=== PATIENT | female | born 1995 | race Caucasian/White ===

== ENCOUNTER 2017-01-12 12:34 | Emergency (ER) | payer MEDICAID, OTHER ==
[2017-01-12 12:34] VITALS: BMI 49.2
[2017-01-12 12:37] VITALS: RESP 16; TEMP 97.9; O2SAT 99
[2017-01-12 12:57] VITALS: BP 124/61
--- NOTE | 2017-01-12 13:03 | ED PDOC ---
HPI: CCC, URI, Sore Throat Time Seen by Provider: 01/12/17 12:50 Chief Complaint (Nursing): ENT Problem Chief Complaint (Provider): Throat Pain History Per: Patient History/Exam Limitations: no limitations Have you had recent travel within the past 21 days to any of the following countries: [place], [place], [place] or [place]?: No Onset/Duration Of Symptoms: Days (x3) Current Symptoms Are (Timing): Still Present Associated Symptoms: Cough, Sputum (phlegm), Myalgias, Nasal Congestion. denies : Fever, Chills Ear Symptoms: Bilateral: Ear Fullness Severity: Moderate Additional Complaint(s): Mala Dimas is a 21 year old female, with no pertinent past medical history, who presents to the ED on 01/12/17 for the evaluation of a moderately sore throat that she has experienced x3 days. Pain, reportedly worse both at morning/night and with swallowing, has been accompanied by associated nasal congestion, b/l ear fullness, voice hoarseness, diffuse myalgias and a phlegmy cough. Denies fever, chills or ear discharge. Has taken no medications prior to arrival for symptom relief. PMD: none Past Medical History Reviewed: Historical Data, Nursing Documentation, Vital Signs Vital Signs: Last Vital Signs Temp 97.9 F 01/12/17 12:35 Pulse 92 H 01/12/17 12:35 Resp 16 01/12/17 12:35 BP 124/61 01/12/17 12:41 Pulse Ox 99 01/12/17 13:22 - Medical History PMH: No Chronic Diseases - Surgical History Surgical History: No Surg Hx - Family History Family History: States: Unknown Family Hx - Social History Current smoker - smoking cessation education provided: Yes (occasional) Alcohol: None Drugs: Denies - Immunization History Hx Tetanus Toxoid Vaccination: Yes - Home Medications Home Medications: Ambulatory Orders Medication Instructions Recorded Terconazole [Terazol 3] 80 mg VG HS #3 supp 05/29/16 Guaifenesin [Mucinex] 600 mg PO BID #14 tab.er.12h 01/12/17 - Allergies Allergies/Adverse Reactions: Allergies Allergy/AdvReac Type Severity Reaction Status Date / Time No Known Allergies Allergy Verified 01/12/17 13:17 Review of Systems Constitutional: Negative for: Fever, Chills ENT: Positive for: Ear Pain (fullness), Nose Congestion, Throat Pain. Negative for: Ear Discharge Cardiovascular: Negative for: Chest Pain Respiratory: Positive for: Cough, Sputum (phlegm). Negative for: Shortness of Breath Musculoskeletal: Positive for: Other (diffuse myalgias) Physical Exam - Reviewed Nursing Documentation Reviewed: Yes Vital Signs Reviewed: Yes - Physical Exam Appears: Positive for: Non-toxic, No Acute Distress Head Exam: Positive for: ATRAUMATIC, NORMOCEPHALIC Skin: Positive for: Normal Color, Warm, Dry Eye Exam: Positive for: Normal appearance, PERRL ENT: Positive for: Pharynx Is (clear; no uvular swelling), TM Is/Are (bulging b/ l TM; no erythema/exudate), Nasal Congestion. Negative for: Pharyngeal Erythema , Tonsillar Exudate, Tonsillar Swelling Cardiovascular/Chest: Positive for: Regular Rate, Rhythm. Negative for: Murmur Respiratory: Positive for: Normal Breath Sounds. Negative for: Respiratory Distress Neurologic/Psych: Positive for: Alert, Oriented - ECG O2 Sat by Pulse Oximetry: 99 (RA) Pulse Ox Interpretation: Normal Medical Decision Making Medical Decision Makin:50 Initial Impression: viral syndrome 13:02 Patient is medically stable and requires no emergent treatment in the ED at this time. Patient will be discharged home with Rx for Mucinex. Also advised rest, increased fluid intake and to take NSAIDs as needed for relief of pain. Counseling was provided and all questions were answered regarding diagnosis and there is agreement to discharge plan. Return if symptoms persist or worsen. Clinical Impression: viral syndrome Scribe Attestation: Documented by Nicol Augustin, acting as a scribe for Courtney Goodwin PA-C. Provider Scribe Attestation: All medical record entries made by the Scribe were at my direction and personally dictated by me. I have reviewed the chart and agree that the record accurately reflects my personal performance of the history, physical exam, medical decision making, and the department course for this patient. I have also personally directed, reviewed, and agree with the discharge instructions and disposition. Disposition - Clinical Impression Clinical Impression: Viral syndrome - Patient ED Disposition Is Patient to be Admitted: No Counseled Patient/Family Regarding: Diagnosis, Rx Given - Disposition Disposition: Routine/Home Disposition Time: 13:02 Condition: STABLE Prescriptions: Guaifenesin [Mucinex] 600 mg PO BID #14 tab.er.12h Instructions: Viral Syndrome (ED)
[2017-01-12 13:53] VITALS: PULSE 76
== END 2017-01-12 13:52 | disposition home or self-care (01) ==
LOC: H.ER 12:34
DX: B34.9 Viral infection, unspecified (principal); R07.0 Pain in throat

== ENCOUNTER 2017-03-28 15:04 | Inpatient (IN) | payer OTHER ==
[2017-03-28 15:04] VITALS: BMI 49.2
--- NOTE | 2017-03-28 15:40 | ED PDOC ---
Lower Extremity Pain/Injury Time Seen by Provider: 03/28/17 15:19 Chief Complaint (Nursing): Lower Extremity Problem/Injury Chief Complaint (Provider): Lower Extremity Problem History Per: Patient History/Exam Limitations: no limitations Onset/Duration Of Symptoms: Days Current Symptoms Are (Timing): Still Present Severity: Moderate Additional History Per: Prior Records Additional Complaint(s): Mala Dimas is a 21 year old female, with no pertinent past medical history, who returns to the emergency department with complaints of increasing pain s/p right trimalleolar reduction. Patient was recently seen in this emergency room on 03/22/2017 and diagnosed with a trimalleolar fracture. Patient was prescribed Naproxen, which she last took today at 13:00, providing no relief. Upon previous discharge from the ER, patient was advised to followup with a podiatry clinic; however, she never went. Of note, patient has medical record charts under #[id number]. PMD: none specified Past Medical History Reviewed: Historical Data, Nursing Documentation, Vital Signs Vital Signs: Last Vital Signs Temp 98.6 F 03/28/17 15:06 Pulse 96 H 03/28/17 15:06 Resp 18 03/28/17 15:06 BP 137/73 03/28/17 15:06 Pulse Ox 100 03/28/17 15:06 - Medical History PMH: Fractures - Surgical History Surgical History: No Surg Hx - Family History Family History: States: No Known Family Hx - Social History Current smoker - smoking cessation education provided: No Ex-Smoker (has not smoked in the last 12 months): No Alcohol: None Drugs: Denies - Immunization History Hx Tetanus Toxoid Vaccination: Yes - Home Medications Home Medications: Ambulatory Orders Medication Instructions Recorded Naproxen [Naprosyn] 500 mg PO BID PRN 03/28/17 - Allergies Allergies/Adverse Reactions: Allergies Allergy/AdvReac Type Severity Reaction Status Date / Time No Known Allergies Allergy Verified 01/12/17 13:17 Review of Systems ROS Statement: Except As Marked, All Systems Reviewed And Found Negative Musculoskeletal: Positive for: Foot Pain Physical Exam - Reviewed Nursing Documentation Reviewed: Yes Vital Signs Reviewed: Yes - Physical Exam Appears: Positive for: Non-toxic, No Acute Distress Head Exam: Positive for: ATRAUMATIC, NORMOCEPHALIC Skin: Positive for: Normal Color, Warm, DRY Cardiovascular/Chest: Positive for: Regular Rate, Rhythm. Negative for: Murmur Respiratory: Positive for: Normal Breath Sounds. Negative for: Respiratory Distress Gastrointestinal/Abdominal: Positive for: Normal Exam, Soft. Negative for: Tenderness Extremity: Positive for: Capillary Refill (less than 2 seconds), Other ( sensation of digits intact). Negative for: Normal ROM (right lower extremity in cast) Neurologic/Psych: Positive for: Alert, Oriented - Laboratory Results Result Diagrams: 03/28/17 16:31 - ECG O2 Sat by Pulse Oximetry: 100 (RA) Pulse Ox Interpretation: Normal - Physician Consult Information Physician Contacted: Jones Saldana Outcome Of Conversation: Recommends Lovenox 40 mg SC now. Medical Decision Making Medical Decision Makin:19 Initial Impression: Post reduction pain Initial Plan: * Podiatry Consult Podiatry recommends admission for OR on Friday. Scribe Attestation: Documented by James Gutierrez, acting as a scribe for Katerina Garcia MD. Provider Scribe Attestation: All medical record entries made by the Scribe were at my direction and personally dictated by me. I have reviewed the chart and agree that the record accurately reflects my personal performance of the history, physical exam, medical decision making, and the department course for this patient. I have also personally directed, reviewed, and agree with the discharge instructions and disposition. Disposition - Clinical Impression Clinical Impression: Closed fracture of distal end of left fibula and tibia - Patient ED Disposition Is Patient to be Admitted: Yes - Disposition Disposition Time: 15:56 Condition: STABLE - Pt Status Changed To: Hospital Disposition Of: Inpatient - Admit Certification Admit to Inpatient:: After my assessment, the patient will require hospitalization for at least two midnights. This is because of the severity of symptoms shown, intensity of services needed, and/or the medical risk in this patient being treated as an outpatient. - POA Present On Arrival: Falls Or Trauma
[2017-03-28] MEDS ORDERED: Enoxaparin 40 mg Syringe SC STA (16:30)
[2017-03-28 16:42] LABS: BASO # 0.1 K/uL (0.0-0.2); BASO % 0.8 % (0.0-2.0); EOS # 0.1 K/uL (0.0-0.7); EOS % 0.8 % (0.0-4.0); HEMATOCRIT 36.6 % (34.0-47.0); LYMPH # 1.2 K/uL (1.0-4.3); LYMPH % 13.3 % (20.0-40.0); MEAN CELL VOLUME 82.9 fl (81.0-99.0); MEAN CORPUSCULAR HEMOGLOBIN 26.4 pg (27.0-31.0); MEAN CORPUSCULAR HGB CONC 31.8 g/dL (33.0-37.0); MEAN PLATELET VOLUME 8.7 fl (7.2-11.7); MONO # 0.4 K/uL (0.0-0.8); NEUT % 80.1 % (50.0-75.0); RED CELL DISTRIBUTION WIDTH 16.6 % (11.5-14.5); WHITE BLOOD COUNT 8.7 K/uL (4.8-10.8)
[2017-03-28 16:52] LABS: ALB/GLOB RATIO 1.1 (1.0-2.1); ALKALINE PHOSPHATASE 55 U/L (38-126); ALT/SGPT 19 U/L (9-52); AST/SGOT 51 U/L (14-36); BILIRUBIN,TOTAL 0.9 mg/dl (0.2-1.3); BLOOD UREA NITROGEN 17 mg/dl (7-17); CALCIUM 9.1 mg/dL (8.4-10.2); CARBON DIOXIDE 24 mmol/L (22-30); CHLORIDE 107 mmol/L (98-107); GFR AFRICAN-AMERICAN > 60; GLUCOSE,RANDOM 76 mg/dL (65-105); SODIUM 141 mmol/l (132-148)
--- NOTE | 2017-03-28 16:57 | CP.PCM.CON ---
History of Present Illness - History of Present Illness History of Present Illness: 21 y/o female seen in the ED with no known pmhx, returns to the ED with pain after sustaining an ankle fx to her right ankle on 03/22/17 s/p ankle fracture reduction. Patient states that she is unable to use crutches to get up and down the stairs in her apt so she has been unable to leave since friday. Patient states that she had missed hr apt on friday in podiatry clinic because she was unable to leave her apt. Patient states that her pain is a 10/ 10 and the naproxen has not really helped much. Patient denies any new onset trauma to the ankle. Patient denies any other complaints at this time. She denies n/f/c/v/d/sob. Review of Systems - Constitutional Constitutional: As Per HPI Past Patient History - Past Social History Alcohol: None Drugs: Denies - MUSCULOSKELETAL/RHEUMATOLOGICAL Hx Fractures: Yes - PSYCHIATRIC Hx Substance Use: No - SURGICAL HISTORY Hx Surgeries: No - ANESTHESIA Hx Anesthesia: No Hx Anesthesia Reactions: No Meds Allergies/Adverse Reactions: Allergies Allergy/AdvReac Type Severity Reaction Status Date / Time No Known Allergies Allergy Verified 01/12/17 13:17 Physical Exam - Constitutional Appears: Well, Non-toxic, No Acute Distress - Extremities Exam Additional comments: right lower extremity focused: Vasc: DP/PT 2/4 , TG wnl, CFT < 3 sec to all digits neuro: grossly intact derm: perimalleolar and foot edema, erythema, echymoses to the medial ankle, no open lesions, no acute clinical signs of infection ortho: severe pain on palpation to right lower extremity, no pain on palpation to calf or calf tenderness - Neurological Exam Neurological exam: Alert, Oriented x3 - Psychiatric Exam Psychiatric exam: Normal Affect, Normal Mood Results - Vital Signs Recent Vital Signs: Last Vital Signs Temp 98.6 F 03/28/17 15:06 Pulse 96 H 03/28/17 15:06 Resp 18 03/28/17 15:06 BP 137/73 03/28/17 15:06 Pulse Ox 100 03/28/17 16:28 - Labs Result Diagrams: 03/28/17 16:31 Labs: Laboratory Results - last 24 hr 03/28/17 16:31 WBC 8.7 RBC 4.42 Hgb 11.6 L Hct 36.6 MCV 82.9 D MCH 26.4 L MCHC 31.8 L RDW 16.6 H Plt Count 397 MPV 8.7 Neut % (Auto) 80.1 H Lymph % (Auto) 13.3 L Howard % (Auto) 5.0 Eos % (Auto) 0.8 Baso % (Auto) 0.8 Neut # 7.0 Lymph # 1.2 Howard # 0.4 Eos # 0.1 Baso # 0.1 Assessment & Plan - Assessment and Plan (Free Text) Assessment: 21 y.o female 1 week s/p trimalleolar right ankle fracture with closed reduction Plan: patient evaluated and chart reviewed discussed in detail with attending Dr. Santana labs and vitals reviewed applied posterior splint using katerininetteprema TIARRA to RLE f/u new ankle X rays f/u US to R/O DVT patient to be admitted for pain control and preoperative management for surgery patient to go to surgery for R ankle ORIF early next week f/u medical optimization for sx patient to remain nonWB with crutches/wheelchair to RLE podiatry will continue to monitor while patient remains in house
[2017-03-28 17:00] LABS: POTASSIUM 5.1 MMOL/L (3.6-5.0)
[2017-03-28 17:02] LABS: PARTIAL THROMBOPLASTIN TIME 32.9 Seconds (25.6-37.1)
--- NOTE | 2017-03-28 17:23 | US ---
PROCEDURE: Right lower extremity venous duplex Doppler. HISTORY: Increasing pain, s/p fracture COMPARISON: None available. TECHNIQUE: Common femoral, superficial femoral, popliteal and posterior tibial veins were evaluated. Flow was assessed with color Doppler, compressibility, assessment of phasic flow and augmentation response. FINDINGS: COMMON FEMORAL VEIN: Unremarkable. SUPERFICIAL FEMORAL VEIN: Unremarkable. POPLITEAL VEIN: Unremarkable. POSTERIOR TIBIAL VEIN: Was not visualized and obscured by right leg cast. OTHER FINDINGS: None. IMPRESSION: The right PTV was not visualized. Otherwise no evidence of deep venous thrombosis in the right lower extremity.
--- NOTE | 2017-03-28 17:31 | RAD ---
PROCEDURE: Radiographs of the right tibia and fibula. HISTORY: H/o tib-fib fx COMPARISON: March 28, 2017. . TECHNIQUE: Frontal and lateral views obtained. FINDINGS: BONES: Fractures of the distal tibia and fibula. No proximal fractures are identified. JOINT SPACES: Unremarkable. OTHER FINDINGS: None. IMPRESSION: This stable tibial and fibular fractures better seen on ankle radiographs. Detail obscured by overlying fiberglass cast.
--- NOTE | 2017-03-28 17:34 | RAD ---
PROCEDURE: Right Ankle Radiographs. M name rim came resume M for HISTORY: H/o tib-fib fxn COMPARISON: None FINDINGS: BONES: Fractures of the right tibia and fibula. Obliques fracture involving the distal fibula. Avulsed fracture of the medial malleolus at the level of the ankle mortise. . JOINTS: Normal. No osteoarthritis. Ankle mortise maintained. Talar dome intact SOFT TISSUES: Soft tissue swelling attests to the acuity of the fracture. OTHER FINDINGS: None. IMPRESSION: Fractures of the distal tibia and fibula. Detail obscured by overlying fiberglass cast.
[2017-03-28 17:59] LABS: URINE APPEARANCE SL CLOUDY (CLEAR); URINE BILIRUBIN NEGATIVE (NEGATIVE); URINE BLOOD NEGATIVE (NEGATIVE); URINE COLOR YELLOW (YELLOW); URINE GLUCOSE (UA) NEG (Normal); URINE KETONE NEGATIVE (NEGATIVE); URINE LEUKOCYTE ESTERASE LARGE Leu/uL (Negative); URINE PROTEIN 30 mg/dL (NEGATIVE); URINE UROBILINOGEN 0.2-1.0 mg/dL (0.2-1.0)
[2017-03-28 18:07] LABS: URINE WBC 15 - 20 /hpf (0-6)
[2017-03-28 18:08] LABS: URINE BACTERIA RARE (<OCC)
--- NOTE | 2017-03-29 08:58 | HP ---
HISTORY OF PRESENT ILLNESS: This is a 21-year-old female with no significant past medical h istory, presented to Emergency Room after a fracture of the bones of the right foot. The patient was initially treated as an outpatient, but patient continued not to improve and podiatry decision was t o have surgery with internal fixation. The patient denied any chest pain, no shortness of breath, an d she denied not have any previous surgeries. REVIEW OF SYSTEMS: Other review of systems is negative. ALLERGIES: No known allergy. HOME MEDICATIONS: None. FAMILY HISTORY: Noncontributory. PHYSICAL EXAMINATION: GENERAL: Comfortable, not in any cardiopulmonary distress. VITAL SIGNS: Blood pressure 95/63, temperature 97.9, respiratory rate 20 and pulse is 81. HEENT: Pupils equal, reactive to light. Normal-appearing mucosa of the conjunctivae, oropharyngeal and nasal membrane mucosa. NECK: Supple, no JVD, no carotid bruit, no lymph node, no thyromegaly. CHEST AND LUNGS: Bilateral symmetrical expansion, good air exchange, no rales, no rhonchi. CARDIOVASCULAR: PMI not localized. S1, S2. No additional sounds. ABDOMEN: Normoactive bowel sounds, no tenderness, no organomegaly, no masses. EXTREMITIES: No cyanosis, no clubbing, no edema. CENTRAL NERVOUS SYSTEM: Alert, awake, oriented x 3. No neurological deficits could be appreciated. ASSESSMENT: Fall with right foot fracture. PLAN: I will give patient DVT prophylaxis. Follow podiatry recommendations. [facility] Ovidio Saldana MD cc: [phone] TT: 03/29/2017 08:57:13 jn
--- NOTE | 2017-03-29 12:22 | CP.PCM.PN ---
Subjective - Date & Time of Evaluation Date of Evaluation: 03/29/17 Time of Evaluation: 12:20 - Subjective Subjective: Patient seen and evaluated at bedside, NAD. Patient has posterior splint clean dry and intact to the right lower extremity, which is elevated with pillows. Patient reports that her pain is well controlled with medication. She denies n/v /f/c/sob at this time. Objective - Vital Signs/Intake and Output Vital Signs (last 24 hours): Temp Pulse Resp BP Pulse Ox 97.3 F L 84 22 109/44 L 100 03/29/17 08:04 03/29/17 08:04 03/29/17 08:04 03/29/17 08:04 03/29/17 08:04 - Medications Medications: Current Medications Enoxaparin Sodium (Lovenox) 40 mg SC DAILY CHARANJIT PRN Reason: Protocol Morphine Sulfate (Morphine) 1 mg IVP Q4 PRN PRN Reason: Pain, moderate (4-7) Last Admin: 03/29/17 11:52 Dose: 1 mg - Labs Labs: 03/28/17 16:31 03/28/17 16:31 PT 13.4 Seconds (9.8-13.1) H 03/28/17 16:31 INR 1.2 (0.9-1.2) 03/28/17 16:31 APTT 32.9 Seconds (25.6-37.1) 03/28/17 16:31 - Constitutional Appears: Well, Non-toxic, No Acute Distress - Neurological Exam Neurological Exam: Oriented x3 - Psychiatric Exam Psychiatric exam: Normal Affect, Normal Mood - Additional Findings Additional findings: Neurovascular status intact distal and proximal to the posterior splint. Splint is c/d/i. Assessment and Plan - Assessment and Plan (Free Text) Assessment: 21 year old female with right ankle trimalleolar fracture. Plan: Patient seen and evaluated, d/w attending Dr. Santana. Patients posterior splint left intact. Patient to continue ice and elevation of the RLE. Patient to surgery on Friday at 1:30 pm for right ankle ORIF, medical clearance appreciated Lovenox to be held after tomorrow. Order placed for PO pain medication Patient to be NPO after midnight tomorrow
[2017-03-29] MEDS: Oxycodone/Acetaminophen 5/325 mg Tab PO PRN ×2 (13:56→19:38)
[2017-03-29] MEDS: Enoxaparin 40 mg Syringe SC SCH (17:17)
--- NOTE | 2017-03-29 21:35 | PN ---
DATE: 03/29/2017 SUBJECTIVE: The patient is seen today 03/29/2017. Her pain is controlled on the right foot. OBJECTIVE: VITAL SIGNS: Blood pressure is 109/44, temperature 97.3, respiratory rate 20, pulse 84. HEENT: Pupils equal, reactive to light. Normal-appearing mucosa of the conjunctivae, oropharyngeal and nasal membrane mucosa. NECK: Supple, no JVD, no carotid bruit, no lymph node, no . CHEST AND LUNGS: Bilateral symmetrical expansion, good air exchange, no rales, no rhonchi. CARDIOVASCULAR: PMI not localized. S1, S2. No additional sounds. ABDOMEN: Normoactive bowel sounds, no tenderness, no organomegaly, no masses. EXTREMITIES: No cyanosis, no clubbing, no edema. CENTRAL NERVOUS SYSTEM: Alert, awake, oriented x 3. No neurological deficits could be appreciated. ASSESSMENT: Right ankle fracture for open reduction and internal fixation. PLAN: We will continue deep thrombosis prophylaxis until 24 hours prior to surgery. medicatio n and ambulation as per podiatry. [facility] cc: [phone] TT: 03/29/2017 21:34:17 Confirmation # [id number] Dictation # [id number] dn
[2017-03-30] MEDS: Enoxaparin 40 mg Syringe SC SCH (10:06)
--- NOTE | 2017-03-30 12:51 | CP.PCM.PN ---
Subjective - Date & Time of Evaluation Date of Evaluation: 03/30/17 Time of Evaluation: 12:49 - Subjective Subjective: Patient seen and evaluated at bedside, NAD. Patient has posterior splint clean, dry and intact with leg elevated. She states that her pain is controlled with medication, however she reports feeling nauseous from percocet. Objective - Vital Signs/Intake and Output Vital Signs (last 24 hours): Temp Pulse Resp BP Pulse Ox 98.8 F 83 20 108/52 L 100 03/30/17 09:00 03/30/17 09:00 03/30/17 09:00 03/30/17 09:00 03/30/17 09:00 - Medications Medications: Current Medications Enoxaparin Sodium (Lovenox) 40 mg SC DAILY CHARANJIT PRN Reason: Protocol Last Admin: 03/30/17 10:06 Dose: Not Given Morphine Sulfate (Morphine) 1 mg IVP Q4 PRN PRN Reason: Pain, moderate (4-7) Last Admin: 03/30/17 11:37 Dose: 1 mg Oxycodone/Acetaminophen (Percocet 5/325 Mg Tab) 2 tab PO Q4 PRN PRN Reason: Pain, moderate (4-7) Stop: 04/01/17 12:25 Last Admin: 03/29/17 19:38 Dose: 2 tab Tramadol HCl (Ultram) 100 mg PO Q4 PRN PRN Reason: Pain, severe (8-10) - Labs Labs: 03/28/17 16:31 03/28/17 16:31 PT 13.4 Seconds (9.8-13.1) H 03/28/17 16:31 INR 1.2 (0.9-1.2) 03/28/17 16:31 APTT 32.9 Seconds (25.6-37.1) 03/28/17 16:31 - Constitutional Appears: Well, Non-toxic, No Acute Distress - Neurological Exam Neurological Exam: Oriented x3 - Psychiatric Exam Psychiatric exam: Normal Affect, Normal Mood - Additional Findings Additional findings: Neurovascular status intact distal and proximal to the posterior splint. Splint is c/d/i. Assessment and Plan - Assessment and Plan (Free Text) Assessment: 21 year old female with trimalleolar ankle fracture of the right ankle Plan: Patient seen and evaluated, d/w attending Dr. Santana. Patient NPO after midnight tonight for ankle ORIF tomorrow at 1:30, pending OR schedule Lovenox held today Patient to continue elevation of the RLE PO tramadol ordered to replace percocet Podiatry will continue to follow
--- NOTE | 2017-03-31 01:15 | PN ---
DATE: 03/30/2017 SUBJECTIVE: The patient is seen today, 03/30/2017. She is not in any distress. The patient is sche duled for surgery tomorrow. PHYSICAL EXAMINATION: VITAL SIGNS: Blood pressure is 105/59, temperature . Respiratory rate 20, pulse 86. HEENT: Pupils equal, reactive to light. Normal appearing mucosa of the conjunctivae and oropharynge al mucosa. NECK: Supple, no JVD, no carotid bruit, no lymph node lymphadenopathy. CHEST AND LUNGS: Bilateral symmetrical expansion, good air exchange, no rales, no rhonchi. CARDIOVASCULAR: PMI not localized. S1, S2. No additional sounds. ABDOMEN: Normoactive bowel sounds, no tenderness, no organomegaly, no masses. EXTREMITIES: No cyanosis, no clubbing, no edema. CENTRAL NERVOUS SYSTEM: Alert, awake, oriented x 3. No neurological deficits could be appreciated. ASSESSMENT: Fracture, right ankle, that needs open reduction and internal fixation and not respondin g to conservative treatment. PLAN: Will hold Lovenox today and the patient has accepted the risks surgery given that she hodges s no past medical history and she is not on any medications and no symptoms or signs of cardiopulmona ry decompensation or recent . Jones Saldana MD cc: [phone] TT: 03/31/2017 01:14:52 Confirmation # [id number] Dictation # [id number] mn
--- NOTE | 2017-03-31 06:31 | CP.PCM.PN ---
Subjective - Date & Time of Evaluation Date of Evaluation: 03/31/17 Time of Evaluation: 06:28 - Subjective Subjective: 25 y/o female seen at bedside this morning for R ankle fracture going to OR today for right ankle ORIF by Dr. Santana. Patient appears in NAD and AAOx3. Patient's right lower extremity splint intact and elevated on multiple pillows. Patient denies any acute events overnight. Patient states that she has not eaten or drank anything since last night. Patient states that her pain is controlled but is nervous about the pain after the surgery. She denies any n/f/v /d/c/sob. Objective - Vital Signs/Intake and Output Vital Signs (last 24 hours): Temp Pulse Resp BP Pulse Ox 97.9 F 90 20 118/59 L 99 03/31/17 00:59 03/31/17 00:59 03/31/17 00:59 03/30/17 21:00 03/31/17 00:59 Intake and Output: 03/30/17 03/31/17 18:59 06:59 Intake Total 700 Output Total 50 Balance 650 - Medications Medications: Current Medications Enoxaparin Sodium (Lovenox) 40 mg SC DAILY [facility] PRN Reason: Protocol Last Admin: 03/30/17 10:06 Dose: Not Given Morphine Sulfate (Morphine) 1 mg IVP Q4 PRN PRN Reason: Pain, moderate (4-7) Last Admin: 03/30/17 11:37 Dose: 1 mg Oxycodone/Acetaminophen (Percocet 5/325 Mg Tab) 2 tab PO Q4 PRN PRN Reason: Pain, moderate (4-7) Stop: 04/01/17 12:25 Last Admin: 03/29/17 19:38 Dose: 2 tab Tramadol HCl (Ultram) 100 mg PO Q4 PRN PRN Reason: Pain, severe (8-10) Last Admin: 03/31/17 00:55 Dose: 100 mg - Labs Labs: 03/28/17 16:31 03/28/17 16:31 PT 13.4 Seconds (9.8-13.1) H 03/28/17 16:31 INR 1.2 (0.9-1.2) 03/28/17 16:31 APTT 32.9 Seconds (25.6-37.1) 03/28/17 16:31 - Constitutional Appears: Well, Non-toxic, No Acute Distress - Extremities Exam Additional comments: right lower extremity: splint remains c/d/i able to wiggle toes cft < 3 sec to all digits no calf pain or tenderness - Neurological Exam Neurological Exam: Alert, Awake, Oriented x3 - Psychiatric Exam Psychiatric exam: Normal Affect, Normal Mood Assessment and Plan - Assessment and Plan (Free Text) Assessment: 25 y/o female seen at bedside going to OR today for right ankle ORIF Plan: Pt was seen and examined at bedside Pt NPO status was confirmed All Pre-op testing and clearance was in the chart Pt has exhausted all conservative treatment at this time and is opting for surgical intervention Pt was explained procedure and post-operative course All pt's questions were answered to satisfaction No guarantees were made Pt understands all risks, benefits and complications of procedure podiatry will continue to monitor while patient remains in house
[2017-03-31] MEDS ORDERED: Propofol 10 mg/ml Inj (20 ML) ONE ×2 (12:40→14:16)
[2017-03-31] MEDS ORDERED: Midazolam 2 MG/2 ML VIAL ONE (12:40)
[2017-03-31] MEDS ORDERED: ePHEDrine 50 mg/ml Inj ONE (12:40)
[2017-03-31] MEDS ORDERED: Succinylcholine 200 mg/10 ml Inj IV ONE (12:41)
[2017-03-31] MEDS ORDERED: Rocuronium 10 mg/ml (5 ml) ONE ×2 (12:41→15:13)
[2017-03-31] MEDS ORDERED: Ropivacaine 0.5% 30ML IV ONE (12:44)
[2017-03-31] MEDS ORDERED: MethylPREDNISolone Depo 40 mg/ml Inj ONE (12:56)
[2017-03-31] MEDS ORDERED: Bupivacaine 0.5% Inj(30mL) ONE (12:56)
[2017-03-31] MEDS ORDERED: Lidocaine 1% Inj (20ml) ONE (12:56)
[2017-03-31 14:05] LABS: BLOOD UREA NITROGEN 16 mg/dl (7-17); CALCIUM 9.7 mg/dL (8.4-10.2); CARBON DIOXIDE 20 mmol/L (22-30); CHLORIDE 105 mmol/L (98-107); GFR AFRICAN-AMERICAN > 60; GLUCOSE,RANDOM 87 mg/dL (65-105); POTASSIUM 4.1 MMOL/L (3.6-5.0); SODIUM 139 mmol/l (132-148)
[2017-03-31] MEDS ORDERED: Lactated Ringer's 1,000 ML IV ONE (14:20)
[2017-03-31] MEDS ORDERED: Dexamethasone 4 mg/1 ml ONE (14:45)
[2017-03-31] MEDS ORDERED: Neostigmine Methylsulfate 3mg/3ml Syringe IV ONE (16:55)
[2017-03-31] MEDS ORDERED: Lidocaine 2% MPF (5 ml) Inj ONE (17:00)
[2017-03-31] MEDS ORDERED: Bupivacaine HCl 0.5% PF (30 ml) Inj ONE (17:00)
[2017-03-31] MEDS ORDERED: Lidocaine 2% PF (10 ml) Amp ONE (17:01)
[2017-03-31] MEDS ORDERED: Oxycodone/Acetaminophen 5/325 mg Tab PO PRN (17:32)
--- NOTE | 2017-03-31 17:32 | PCM.ANESB2 ---
Popliteal Nerve Block - Popliteal Nerve Block Date of Procedure: 03/31/17 Anesthesiologist: Wagner Pre-Procedure Diagnosis: right ankle fracture Post-Procedure Diagnosis: same Procedure Performed: Popliteal Nerve Block Right - Procedure Popliteal Nerve Block: This procedure was explained to the patient that it is for post-operative pain management. Consent was obtained after a thorough discussion with the patient regarding the benefits and possible complications of local anesthetic block of the sciatic nerve at the popliteal level. The patient was brought to the operating room and standard monitors are applied. Time-out was held with the circulating nurse to confirm the correct surgery and the appropriate block. After applying oxygen by nasal cannula and administering IV Sedation, patient's operative leg was gently raised and supported and the groove in between the biceps femoris and vastus lateralis muscles was carefully palpated. The skin approximately 8cm above the popliteal crease was then marked. The ultrasound transducer was then applied to the posterior thigh approximately 8cm above the popliteal crease in the transverse plane and the sciatic nerve before its division was visualized lateral to the popliteal artery and in between the bicep femoris and semimembranosus/semitendinosus muscles. After identification, the lateral portion of the thigh was prepped with Betadine solution three times and Lidocaine 1% was injected subcutaneously for topical anesthesia. At this point, a # 21 gauge Stimuplex insulated 4 inch needle was inserted into pre-marked area and advanced in a perpendicular direction. The needle was inserted above the ultrasound transducer in-plane towards the sciatic nerve in a [id number] direction. Needle advancement was performed carefully under direct ultrasound visualization. Nerve stimulator was used and dorsiflexion of the right foot was elicited at a current of _o.4____ MA. After repeated negative aspiration, _10____cc of _2____ % __lidocaine was injected and this was flowed with ___20___ cc of __0.5____% __ropivicaine ___. Under ultrasound guidance the local anesthetics were observed tenting the epidural sheath and surrounding the roots of the sciatic nerve. The needle was removed intact and sterile dressing was applied. The patient tolerated the popliteal nerve block well with stable vital signs and was subsequently prepared for the surgery.
--- NOTE | 2017-03-31 17:32 | PCM.SURG1 ---
Surgeon's Initial Post Op Note - Surgeon's Notes Surgeon: Dr. Santana Ballet Professor: Dr. Womack, Dr. Bernabe, Dr. Yadav Type of Anesthesia: General Endo Anesthesia Administered By: Dr. Jamison Pre-Operative Diagnosis: right ankle fracture Operative Findings: see dictation Post-Operative Diagnosis: same as preop Operation Performed: right ankle ORIF Specimen/Specimens Removed: none Estimated Blood Loss: EBL {In ML}: 30 Blood Products Given: N/A Drains Used: No Drains Post-Op Condition: Good Date of Surgery/Procedure: 03/31/17 Time of Surgery/Procedure: 14:30
[2017-03-31] MEDS ORDERED: DiphenhydrAMINE 50 mg/ml Inj IVP PRN (17:47)
[2017-03-31] MEDS ORDERED: Lactated Ringer's 1,000 ML IV SCH (17:47)
[2017-03-31] MEDS ORDERED: HYDROmorphone 0.5 mg/0.5 ml ISec IVP PRN (17:47)
--- NOTE | 2017-03-31 17:50 | RAD ---
PROCEDURE: Intraoperative Fluoroscopy. HISTORY: Right ankle FINDINGS: Fluoroscopic assistance was provided for ORIF right ankle. Approximately 133.2 seconds fluoroscopy time utilized during this procedure. Radiation dose = 6.12 mGy Please refer to the operative report for additional details.
[2017-04-01] MEDS: HYDROmorphone 0.5 mg/0.5 ml ISec IVP PRN ×3 (00:03→15:01)
--- NOTE | 2017-04-01 10:51 | CP.PCM.PN ---
Subjective - Date & Time of Evaluation Date of Evaluation: 04/01/17 Time of Evaluation: 10:51 - Subjective Subjective: 25 y/o female seen bedside 1 day s/p right ankle ORIF. Pt appears in NAD and is AAOx3. Pt denies of any overnight events. Pt denies of any F/N/V/C/SOB. Pt states that her pain is well controlled but feels nauseous from percocet. Pt states that she has been icing behind the knees and has been elevating her leg on pillows. Pt complains of numbness on her toes and burning on her ankle. Objective - Vital Signs/Intake and Output Vital Signs (last 24 hours): Temp Pulse Resp BP Pulse Ox 99 F 81 18 123/63 96 04/01/17 08:19 04/01/17 08:19 04/01/17 08:19 04/01/17 08:19 04/01/17 08:19 Intake and Output: 04/01/17 04/01/17 06:59 18:59 Intake Total 1440 Output Total 450 Balance 990 - Medications Medications: Current Medications Acetaminophen (Tylenol 325mg Tab) 650 mg PO Q4 PRN PRN Reason: Pain, Mild (1-3) Enoxaparin Sodium (Lovenox) 40 mg SC DAILY [facility] PRN Reason: Protocol Last Admin: 03/30/17 10:06 Dose: Not Given Hydromorphone HCl (Dilaudid) 1 mg IVP Q3 PRN PRN Reason: Pain, severe (8-10) Last Admin: 04/01/17 06:18 Dose: 1 mg Lactated Ringer's (Lactated Ringer's) 1,000 mls @ 100 mls/hr IV .Q10H [facility] Last Admin: 04/01/17 03:49 Dose: 100 mls/hr Oxycodone/Acetaminophen (Percocet 5/325 Mg Tab) 1 tab PO Q4 PRN PRN Reason: Pain, moderate (4-7) Stop: 04/03/17 17:33 Tramadol HCl (Ultram) 100 mg PO Q4 PRN PRN Reason: Pain, severe (8-10) Last Admin: 04/01/17 10:02 Dose: 100 mg - Labs Labs: 03/28/17 16:31 03/31/17 13:30 PT 13.4 Seconds (9.8-13.1) H 03/28/17 16:31 INR 1.2 (0.9-1.2) 03/28/17 16:31 APTT 32.9 Seconds (25.6-37.1) 03/28/17 16:31 - Constitutional Appears: Well, Non-toxic, No Acute Distress - Extremities Exam Additional comments: Right foot focused Posterior splint is intact, no strike through, [employer]: < 3 sec to the digits, able to wiggle toes, no calf pain or tenderness - Neurological Exam Neurological Exam: Alert, Awake, Oriented x3 Assessment and Plan - Assessment and Plan (Free Text) Assessment: 21 y/o female seen bedside 1 day s/p R ankle ORIF Plan: Pt evaluated and chart reviewed Pt discussed with attending Dr. Santana Dressing to RLE remains clean, dry and intact Pt to continue ice and elevation Pt to continue NWB to RLE with walker Rx: vicodin 7.5mg ES q6h Continue pain management Podiatry will continue to follow while in house
[2017-04-01] MEDS: Enoxaparin 40 mg Syringe SC SCH (13:06)
--- NOTE | 2017-04-01 17:30 | RAD ---
PROCEDURE: Right Ankle Radiographs. HISTORY: s/p right ankle sx COMPARISON: 03/28/2017. FINDINGS: BONES: Satisfactory position alignment of major fracture fragments distal tibia and fibula. Orthopedic hardware in satisfactory position without evidence of hardware failure. JOINTS: Normal. No osteoarthritis. Ankle mortise maintained. Talar dome intact SOFT TISSUES: Normal. OTHER FINDINGS: None. IMPRESSION: Satisfactory postoperative status.Detail obscured by overlying fiberglass cast.
--- NOTE | 2017-04-01 22:36 | PN ---
DATE: 04/01/2017 SUBJECTIVE: The patient is seen today, 04/01/2017. She is postoperative day #1. She still has pain and she needs pain medications. PHYSICAL EXAMINATION: VITAL SIGNS: Blood pressure is 132/69, temperature 97.1, respiratory rate 20, and pulse 88. HEENT: Pupils equal, reactive to light. Normal-appearing mucosa of the conjunctivae, oropharyngeal, and nasal membrane mucosa. NECK: Supple, no JVD, no carotid bruit, no thyromegaly. CHEST AND LUNGS: Bilateral symmetrical expansion, good air exchange, no rales, no rhonchi. CARDIOVASCULAR: PMI not localized. S1, S2. No additional sounds. ABDOMEN: Normoactive bowel sounds, no tenderness, no organomegaly, no masses. EXTREMITIES: No cyanosis, no clubbing, no edema. CENTRAL NERVOUS SYSTEM: Alert, awake, oriented x 3. No neurological deficits could be appreciated. ASSESSMENT: Status post fall with fracture of right ankle, status post open reduction internal fixat ion. PLAN: Deep venous thrombosis prophylaxis, laxatives, and pain medications as per podiatry. [facility] Ovidio Saldana MD cc: [id number] TT: 04/01/2017 22:35:54 Confirmation # [id number] Dictation # [id number] gail
[2017-04-02] MEDS ORDERED: Benzocaine/Menthol (Cepacol) Lozenge PO PRN (09:18)
--- NOTE | 2017-04-02 09:35 | CP.PCM.PN ---
Subjective - Date & Time of Evaluation Date of Evaluation: 04/02/17 Time of Evaluation: 09:33 - Subjective Subjective: 25 y/o female seen bedside 2 days s/p right ankle ORIF. Pt appears in NAD and is AAOx3. Pt denies of any overnight events. Pt denies of any F/N/V/C/SOB. Pt states that her pain is well controlled. Pt states that she has been icing behind the knees and has been elevating her leg on pillows. Pt complains of numbness on her toes and burning on her ankle. She states that PT cleared her yesterday for walking up and down stairs and taught her how to get down stairs on her behind. Patient states that she is willing to learn with her mother how to give herself lovenox injections as outpatient. Patient denies any acute events overnight. Objective - Vital Signs/Intake and Output Vital Signs (last 24 hours): Temp Pulse Resp BP Pulse Ox 98.5 F 87 18 109/64 97 04/02/17 01:00 04/02/17 01:00 04/02/17 01:00 04/02/17 01:00 04/02/17 01:00 - Medications Medications: Current Medications Acetaminophen (Tylenol 325mg Tab) 650 mg PO Q4 PRN PRN Reason: Pain, Mild (1-3) Benzocaine/Menthol (Cepacol Sore Throat) 1 mohit PO Q3 PRN PRN Reason: Sore Throat Enoxaparin Sodium (Lovenox) 40 mg SC DAILY [facility] PRN Reason: Protocol Last Admin: 04/01/17 13:06 Dose: 40 mg Hydromorphone HCl (Dilaudid) 1 mg IVP Q3 PRN PRN Reason: Pain, severe (8-10) Last Admin: 04/02/17 01:29 Dose: 1 mg Oxycodone/Acetaminophen (Percocet 5/325 Mg Tab) 1 tab PO Q4 PRN PRN Reason: Pain, moderate (4-7) Stop: 04/03/17 17:33 Tramadol HCl (Ultram) 100 mg PO Q4 PRN PRN Reason: Pain, severe (8-10) Last Admin: 04/02/17 08:26 Dose: 100 mg - Labs Labs: 03/28/17 16:31 06/05/17 13:30 PT 13.4 Seconds (9.8-13.1) H 03/28/17 16:31 INR 1.2 (0.9-1.2) 03/28/17 16:31 APTT 32.9 Seconds (25.6-37.1) 03/28/17 16:31 - Constitutional Appears: Well, Non-toxic, No Acute Distress - Extremities Exam Additional comments: Right lower extremity focused: Posterior splint is intact, no strike through, [employer]: < 3 sec to the digits, able to wiggle toes, no calf pain or tenderness - Neurological Exam Neurological Exam: Alert, Awake, Oriented x3 - Psychiatric Exam Psychiatric exam: Normal Affect, Normal Mood Assessment and Plan - Assessment and Plan (Free Text) Assessment: 21 y/o female seen bedside 2 days s/p Right ankle ORIF Plan: patient evaluated and chart reviewed discussed in detail with attending Dr. Santana labs and vitals reviewed; afebrile Dressing to RLE remains clean,dry,intact continue applying ice, elevation on pillows continue nonweightbearing to RLE with walker Rx Vicodin 7.5mg ES q6h Detailed discussion with patient in regards to importance of lovenox treatment as outpatient including risks of blood clots given patients past medical history patient to follow up as outpatient in [facility] podiatry clinic next friday for post op check patient demonstrated verbal understanding of treatment plan podiatry will cont. to follow
[2017-04-02 10:13] VITALS: BP 110/54; RESP 20
[2017-04-02] MEDS: Enoxaparin 40 mg Syringe SC SCH (11:38)
[2017-04-02 14:27] VITALS: PULSE 80; TEMP 97.9; O2SAT 99
--- NOTE | 2017-04-02 23:41 | DS ---
REASON FOR ADMISSION: The patient was admitted through the Emergency Room after a fall and nonrespon se of the right ankle fracture to conservative therapy. COURSE OF HOSPITALIZATION: The patient, after evaluated by body cleaner, patient was admitted to medic al floor. The patient was stable . The patient right , and patient was taken to ope rating room for open reduction internal fixation. The patient tolerated the procedure well and she h ad uneventful postoperative course. The patient was discharged home on a walker with no weightbearing on the right foot and to follow up with podiatry. The patient was given to be injected daily, hold , and pain medicine. Jones Saldana MD cc: [id number] TT: 04/02/2017 23:40:35 gail
--- NOTE | 2017-04-03 09:16 | OP ---
PROCEDURE DATE: 03/31/2017 SURGEON: Bebe Santana DPM. SENIOR SOFTWARE QUALITY ENGINEER: Shanta, PGY-3. SECOND SENIOR SOFTWARE QUALITY ENGINEER: Tawny Bernabe, PGY-3. ANESTHESIA: General anesthesia with popliteal block. PREOPERATIVE DIAGNOSIS: Right displaced trimalleolar ankle fracture. POSTOPERATIVE DIAGNOSES: Right displaced trimalleolar ankle fracture. PROCEDURE: Right ankle open reduction and internal fixation of displaced ankle fracture. INDICATIONS: The patient is a 21-year-old female who suffers from a trimalleolar ankle fracture. Th e patient has exhausted all conservative treatment at this time and is now requesting surgical interv ention. The patient signed the consent after careful explanation of all risks, benefits, complicatio ns and alternatives to the surgical procedure. No guarantees were given nor implied. PREPARATION: The patient was brought into the operating room, placed on the operating room table in supine position. A well-padded pneumatic thigh tourniquet was applied to the patient's right thigh. After induction of general anesthesia, the patient's right lower extremity was then prepped and drap ed in usual sterile manner. At this time, the patient's right lower extremity was then exsanguinated with Esmarch and the pneumatic thigh tourniquet inflated to 350 mmHg and the procedure began. PROCEDURE #1: RIGHT ANKLE OPEN REDUCTION AND INTERNAL FIXATION OF DISPLACED TRIMALLEOLAR ANKLE FRACT URE: Attention was directed to the lateral aspect of the patient's right ankle where the borders of the pa tient's fibula were identified. Utilizing a #15 blade, a 10 cm linear longitudinal incision was crea alysia overlying the central aspect of the distal 1/3 of the fibula. The incision was deepened through subcutaneous tissue with care being taken to identify and retract all vital neurovascular structures. All bleeders were cauterized and ligated as necessary. At this time, utilizing a #15 blade, a line ar longitudinal periosteal incision was created in the same attitude as the skin incision. Utilizing sharp and blunt dissection, the periosteal tissue was carefully dissected free of its osseous attach ments and reflected medially and laterally, exposing the distal aspect of the fibula along with the l jian spiral oblique fracture in the fibula into the operative field. At this time, the fracture site was flushed with copious amounts of normal sterile saline. The most posterior aspect of the fracture was identified and all soft tissue was released. Once the fracture site had been properly debrided, the ankle joint itself was then distracted and the fracture fragment was reduced and temporarily fix ated utilizing 2 alligator clamps. At this time, the fracture fragment was visualized under fluorosc opy and it was verified that the fracture had been properly reduced, the ____, the lateral gutter was clear and that the fibula itself was brought back out to its proper length. Once proper reduction o f the fracture fragment was verified 2 Synthes cortical screws were placed across the fracture fragme nt following standard AO principles and techniques. The two 3.5 Synthes cortical screws were placed perpendicular to the fracture fragment itself. Once proper placement of these 2 lag screws had been applied, the temporary fixation was then removed and a 10-hole Synthes 1/3 tubular plate was temporar kiana fixated utilizing a K-wire to the lateral aspect of the patient's fibula. Proper placement of th e clamp as well as proper placement of the lag screws and maintenance of correction was verified unde r fluoroscopy at this time. Next, the holes were subsequently filled with their proper 3.5 Synthes c ortical locking and nonlocking screws. Once all the screw holes had been filled, all temporary fixat ion was removed and again proper placement of the plate as well as maintenance of the reduction was v isualized under fluoroscopy. At this time, attention was directed to the medial aspect of the patient's right ankle where the bord ers of the medial malleolus were identified. Utilizing a #15 blade, a 4 cm curvilinear incision was created overlying the distal aspect of the patient's medial malleolus. The incision was deepened thr ough subcutaneous tissue with care being taken to identify and retract all vital neurovascular struct ures. All bleeders were cauterized and ligated as necessary. At this time, utilizing a #15 blade, a linear periosteal incision was created overlying the distal aspect of the medial malleolus using sha rp and blunt dissection. The periosteal tissue was carefully reflected free of its osseous attachmen ts and reflected medially and laterally, exposing the distal aspect of the medial malleolus as well a s the transverse fracture into the operative site. At this time, the fracture was flushed with copio us amounts of normal sterile saline and any periosteum that had been caught within the fracture site was carefully debrided and passed from the operative field. At this time, utilizing a K-wire, the K- wire was driven from the distal aspect of the medial malleolus into the tibial shaft. Utilizing a pa rallel wire guide, a second K-wire was driven from the distal aspect of the medial malleolus into the tibial shaft and was parallel to the first wire. At this time, proper reduction of the fracture fra gment itself as well as reestablishment of the ankle mortise was visualized under fluoroscopy. At th is time, the distal aspect of the fibula was then drilled utilizing the proper Synthes drill and two 44 mm x 4.0 cancellous screws were placed across the fracture site with excellent compression noted a s well as maintenance of correction. All temporary fixation at this time was then removed. At this time, a dental hook was then placed across the fibula and, under live fluoroscopy, the cotton hook te st was performed to check the integrity of the syndesmotic ligament. No rupture of the syndesmosis w as detected at this time. All incision sites were then flushed with copious amounts of normal sterile saline. The deep tissue was reapproximated and coapted with 2-0 and 3-0 Vicryl. The subcutaneous tissue was reapproximated a nd coapted utilizing 4-0 Vicryl and the skin was reapproximated and coapted utilizing 4-0 nylon in ho rizontal mattress technique sutures. The patient did receive a postoperative injection of 10 mL of 0 .5% Marcaine plain for the saphenous nerve block. The incision sites were then dressed in Betadine-s oaked Adaptic and DSD, and the patient was placed in a well-padded posterior splint with the foot hel d in 90 degrees in relation to the leg. POSTOPERATIVE CONDITION: The patient tolerated the procedure and anesthesia well. She did receive a popliteal block administered by anesthesia in the operating room following the procedure. The patie nt was then transferred to PACU with all vital signs and neurovascular status intact to her right low er extremity. It is to be noted that the patient will be nonweightbearing in a posterior splint and crutches, and t he patient will be readmitted to the [facility] pediatric floor where podiatry will continue to follow her. Upon discharge, the patient will follow up with Dr. Santana in her offi ce. Daina Tsai DPM Bebe aSntana DPM cc: [id number] TT: 04/02/2017 10:10:27 [facility] # [id number] [place]n
== END 2017-04-02 16:25 | disposition home or self-care (01) | DRG 219 ==
LOC: H.ER 15:04 → H.ERHOLD 15:56 → H.PEDS 18:13
PROVIDERS: ADMIT Internal Medicine; ATTEND Internal Medicine
PROC: 0QSJ04Z Reposition Right Fibula with Internal Fixation Device, Open Approach (ICD-10-PCS; principal; 2017-03-31 13:30)
PROC: 0QSG04Z Reposition Right Tibia with Internal Fixation Device, Open Approach (ICD-10-PCS; 2017-03-31 13:30)
DX: S82.851A Displaced trimalleolar fracture of right lower leg, initial encounter for closed fracture (principal); R11.0 Nausea; T40.2X5A Adverse effect of other opioids, initial encounter; W19.XXXA Unspecified fall, initial encounter; Z87.891 Personal history of nicotine dependence; Y93.9 Activity, unspecified; Y92.9 Unspecified place or not applicable